=== PATIENT | female | born 1990 | race Caucasian/White ===

== ENCOUNTER 2021-09-04 10:27 | Inpatient (IN) | payer BC, SELFPAY ==
[~2021-09-04] VITALS: Ht 177.8 cm; Wt 79.4 kg
[2021-09-04 10:39] VITALS: BP_SYST 114
--- NOTE | 2021-09-04 10:45 | NUR ---
SENT TO ANG
--- NOTE | 2021-09-04 11:25 | NUR ---
DR. MAY EXAMINING PT
[2021-09-04] MEDS ORDERED: ONDANSETRON HCL 4 MG/2 ML VIAL IVP ONE (11:30)
[2021-09-04] MEDS ORDERED: DIPHENHYDRAMINE INJ 50 MG/ML VIAL IVP ONE ×2 (11:30→17:30)
[2021-09-04] MEDS ORDERED: LORazepam 2 MG/ML VIAL IVP ONE (11:30)
[2021-09-04] MEDS ORDERED: NACL 0.9% 2,000 ML IV ONE (11:30)
[2021-09-04] MEDS ORDERED: MAG HYDROX/AL HYDROX/SIMETH 30 ML, LIDOCAINE VISCOUS 2% 15ML (PO) 15 ML, DICYCLOMINE HC... PO ONE ×3 (11:45)
[2021-09-04 12:12] LABS: BASOPHILS % (AUTO) 0.1 % (0.0-2.0); HEMATOCRIT 39.6 % (36-48); HEMOGLOBIN 14.2 g/dL (12.0-16.0); LYMPHOCYTES # (AUTO) 0.6 K/uL (1.0-5.5); MEAN CORPUSCULAR HEMOGLOBIN 31 pg (27-31); MEAN CORPUSCULAR HGB CONC 36 % (32-36); MEAN CORPUSCULAR VOLUME 85 fL (79.0-98.0); MONOCYTES # (AUTO) 0.5 K/uL (0.0-1.0); MONOCYTES % (AUTO) 4.3 % (1.7-9.3); NEUTROPHILS % (AUTO) 90.6 % (40.0-70.0); PLATELET COUNT (AUTO) 410 K/uL (130-430); RED BLOOD CELL COUNT(AUTO) 4.64 MIL/uL (4.2-6.2); RED CELL DISTRIBUTION WIDTH 12.5 % (9.0-15.0); WHITE BLOOD COUNT (AUTO) 12.2 K/uL (4.8-10.8)
[2021-09-04 12:16] LABS: CALCIUM 9.4 mg/dL (8.4-11.0); CREATININE 0.89 mg/dL (0.55-1.30); POTASSIUM 4.1 mmol/L (3.5-5.1)
[2021-09-04 12:32] LABS: ALBUMIN 4.4 g/dL (3.4-4.8); TOTAL BILIRUBIN 1.5 mg/dL (0.0-1.0)
--- NOTE | 2021-09-04 12:51 | NUR ---
PT CONT TO BE IN XRAY, UNABLE TO MEDICATE. CN AND DR MAY AWARE
--- NOTE | 2021-09-04 13:05 | NUR ---
PT COMES TO ER WITH C/O EPIGATRIC PAIN WITH N/ V X 20 TIMES SINCE LAST NGIHT AFTER EATING OUTSIDE FOOD, STATES MOM WAS NAUTIOUS TOO, BUT IT STOPPED. DENIES ANY RESPIRATORY SYMPTOMS. SKIN W/D/I, REPORTS EPIGASTRIC PAIN, INTERMITTENT. DENIES DYSURIA/HEMATURIA. IV SL PLACED, MEDICATED, URINE COLLCTED AND SENT TO LAB. FAMILY AT BEDSIDE.
[2021-09-04 14:05] LABS: BILIRUBIN,URINE NEGATIVE (NEGATIVE); BLOOD, URINE NEGATIVE (NEGATIVE); CLARITY/URINE CLEAR (CLEAR); GLUCOSE,URINE NEGATIVE (NEGATIVE); KETONES,URINE 1+ (NEGATIVE); LEUKOCYTE ESTERASE ,URINE NEGATIVE (NEGATIVE); NITRITE, URINE NEGATIVE (NEGATIVE); PH,URINE 8.5 (5.0-8.0); PROTEIN URINE 1+ (NEGATIVE); UROBILINOGEN,URINE 0.2 (0.2-1.0)
[2021-09-04 14:11] LABS: COLOR,URINE AMBER (YELLOW)
[2021-09-04 14:15] LABS: BACTERIA,URINE None Seen /HPF (None Seen); MUCUS,URINE 1+ /LPF (None Seen); RBC,URINE 0-3 /HPF (0-3); WBC,URINE NONE SEEN /HPF (0-3)
[2021-09-04] MEDS ORDERED: KETOROLAC TROMETHAMINE 30 MG VIAL IVP ONE (14:15)
--- NOTE | 2021-09-04 14:26 | NUR ---
PT CONTNIUES TO REPORTS EPIGATSRIC PAIN, MEDICATED WITH TORADOL IVP ORDERED. IV FLUIDS INFUSING WELL.
[2021-09-04 14:42] LABS: PROTHROMBIN TIME 10.9 SECS (9.5-12.5)
--- NOTE | 2021-09-04 14:53 | NUR ---
AMBULAYTED TO [facility]
--- NOTE | 2021-09-04 14:57 | NUR ---
REPORT GIVEN TO MAGGI DOZIER, CARE TURNED OVER.
--- NOTE | 2021-09-04 15:00 | NUR ---
RECEIVED PT IN [facility] AOX[facility]. C/O NAUSEA, IV FLUIDS INFUSING PER ORDER. NAD. SAFETY MAINTAINED
--- NOTE | 2021-09-04 17:00 | NUR ---
PT DID NOT TOLERATE PO CHALLENGE. PT TO BE ADMITTED TO HOSPITAL.
[2021-09-04] MEDS ORDERED: METOCLOPRAMIDE HCL 10 MG/2 ML VIAL IVP ONE (17:30)
[2021-09-04] MEDS ORDERED: ONDANSETRON HCL 4 MG/2 ML VIAL IVP PRN (17:45)
[2021-09-04] MEDS ORDERED: KCL 20 mEq in D5/0.45NS 1000mL 1,000 ML IV ONE (17:45)
--- NOTE | 2021-09-04 18:09 | NUR ---
PT MEDICATED PER ORDER. TOLERATED WELL. NAD
[2021-09-04 20:00] VITALS: BP_SYST 127
[2021-09-04] MEDS ORDERED: KCL 20 mEq in D5/0.45NS 1000mL 1,000 ML IV SCH (20:30)
--- NOTE | 2021-09-04 22:00 | NUR ---
CONSULTATION PAGED REASON FOR CONSULTATION:ACUTE HEPATITIS WAS CONSULT CALED?Y PERSON WHO WAS NOTIFIED:HEDY CONSULTING PHYSICIAN:CORNELL GRIJALVA CUT IN STATION OPERATOR SPECIALTY:GI CUT IN STATION OPERATOR PHONE NUMBER:[phone] REQUESTING PHYSICIAN:BUBBA JIMENEZ
[2021-09-04] MEDS: DIPHENHYDRAMINE INJ 50 MG/ML VIAL IVP PRN (23:54)
[2021-09-04] MEDS: PANTOPRAZOLE SODIUM 40 MG/VIAL (PROTONIX) IVP SCH (23:55)
[2021-09-05] VITALS (7 sets, daily range): BP systolic 118–136
[2021-09-05] MEDS ORDERED: KETOROLAC TROMETHAMINE 15 MG VIAL IVP PRN (06:15)
[2021-09-05 07:40] LABS: BASOPHILS % (AUTO) 0.3 % (0.0-2.0); EOSINOPHILS # (AUTO) 0.1 K/uL (0.0-0.4); EOSINOPHILS % (AUTO) 0.5 % (0.0-4.0); HEMOGLOBIN 11.9 g/dL (12.0-16.0); LYMPHOCYTES # (AUTO) 2.4 K/uL (1.0-5.5); LYMPHOCYTES % (AUTO) 23.6 % (20.5-51.5); MEAN CORPUSCULAR HEMOGLOBIN 31 pg (27-31); MEAN CORPUSCULAR HGB CONC 35 % (32-36); MEAN CORPUSCULAR VOLUME 87 fL (79.0-98.0); MONOCYTES # (AUTO) 0.5 K/uL (0.0-1.0); MONOCYTES % (AUTO) 4.8 % (1.7-9.3); NEUTROPHILS # (AUTO) 7.3 K/uL (1.8-7.7); NEUTROPHILS % (AUTO) 70.8 % (40.0-70.0); PLATELET COUNT (AUTO) 315 K/uL (130-430); RED BLOOD CELL COUNT(AUTO) 3.91 MIL/uL (4.2-6.2); RED CELL DISTRIBUTION WIDTH 12.5 % (9.0-15.0); WHITE BLOOD COUNT (AUTO) 10.3 K/uL (4.8-10.8)
[2021-09-05 08:22] LABS: ALBUMIN 3.3 g/dL (3.4-4.8); CALCIUM 8.1 mg/dL (8.4-11.0); CREATININE 0.74 mg/dL (0.55-1.30); POTASSIUM 3.4 mmol/L (3.5-5.1); TOTAL BILIRUBIN 0.6 mg/dL (0.0-1.0)
[2021-09-05] MEDS ORDERED: DIATR MEGLU/DIATRIZ SOD 30 ML SOLUTION PO ONE (08:44)
[2021-09-05] MEDS ORDERED: NALOXONE HCL 0.4 MG/ML AMP (NARCAN) IVP PRN (09:00)
[2021-09-05] MEDS: PANTOPRAZOLE SODIUM 40 MG/VIAL (PROTONIX) IVP SCH ×2 (09:44→20:41)
--- NOTE | 2021-09-05 09:44 | NUR ---
Assumed care last night. We mainly managed pt immediate needs,and she was to be admitted by the Am RN. Pharmacy was away at the time. This AM pt was in pain, but no pain medications prescribed. MD was contacted. Received new orders. Pt was treated for pain. She is feeling much better. Care has been endorsed to AM RN.
[2021-09-05] MEDS: KCL 20 mEq in D5/0.45NS 1000mL 1,000 ML IV SCH ×2 (09:51→16:45)
[2021-09-05 10:30] LABS: LACTATE DEHYDROGENASE 318 U/L (81-234)
[2021-09-05 10:37] LABS: ACETAMINOPHEN < 1 ug/mL (1-30)
[2021-09-05 10:46] LABS: TOTAL IRON BIND. CAPACITY 328 ug/dL (250-450)
[2021-09-05] MEDS: MORPHINE 2 MG/ML INJ. SYRINGE IVP PRN ×2 (14:44→20:54)
--- NOTE | 2021-09-05 19:30 | NUR ---
Opening note Received report from day shift. Pt is awake lying in bed with mother at bedside. No s/s of respiratory distress. Breathing even and unlabored. IV site is intact and patent with fluids running at ordered rate. Fall and safety precautions in place with bed in lowest position and call light within reach
[2021-09-05] MEDS: ONDANSETRON HCL 4 MG/2 ML VIAL IVP PRN (20:42)
[2021-09-05 23:41] LABS: BARBITURATE, URINE NEGATIVE (NEG <=200); BENZODIAZEPINE, URINE POSITIVE (NEG <=150); CANNABINOID, URINE POSITIVE (NEG <=50); COCAINE, URINE NEGATIVE (NEG <=150); METHAMPHETAMINES SCREEN,URINE NEGATIVE (NEG <=500); OPIATE, URINE POSITIVE (NEG <=100); PHENCYCLIDINE SCREEN,URINE NEGATIVE (NEG <=25); UR TRICYCLIC ANTIDEPRESSANTS NEGATIVE (NEG <=300); URINE AMPHETAMINE NEGATIVE (NEG <=500); URINE METHADONE NEGATIVE (NEG <=200); URINE OXYCODONE SCREEN NEGATIVE (NEG <=100); URINE PROPOXYPHENE SCREEN NEGATIVE (NEG <=300)
[2021-09-06] VITALS: BP_SYST 111
--- NOTE | 2021-09-06 00:15 | NUR ---
Rounds Pt sleeping. Mother still at bedside. No s/s of acute distress. Fall and safety checks in place
[2021-09-06] MEDS: KCL 20 mEq in D5/0.45NS 1000mL 1,000 ML IV SCH ×2 (01:39→11:31)
--- NOTE | 2021-09-06 02:01 | NUR ---
Pt had episodes of vomiting, administered zofran and benadryl PRN per pt request
[2021-09-06] MEDS: DIPHENHYDRAMINE INJ 50 MG/ML VIAL IVP PRN ×2 (02:57→11:31)
[2021-09-06] MEDS: ONDANSETRON HCL 4 MG/2 ML VIAL IVP PRN ×2 (02:57→11:31)
--- NOTE | 2021-09-06 06:59 | NUR ---
Closing note Pt sleeping. No s/s of respiratory distress. Breathing even and unlabored. IV site is intact and patent with fluids running at ordered rate. Pt no longer vomiting. All needs met throughout shift. Fall and safety precautions in place with bed in lowest position and call light within reach.
[2021-09-06 07:23] LABS: BASOPHILS % (AUTO) 0.5 % (0.0-2.0); EOSINOPHILS % (AUTO) 0.1 % (0.0-4.0); HEMATOCRIT 39.4 % (36-48); HEMOGLOBIN 13.7 g/dL (12.0-16.0); LYMPHOCYTES # (AUTO) 1.7 K/uL (1.0-5.5); LYMPHOCYTES % (AUTO) 18.9 % (20.5-51.5); MEAN CORPUSCULAR HEMOGLOBIN 31 pg (27-31); MEAN CORPUSCULAR HGB CONC 35 % (32-36); MEAN CORPUSCULAR VOLUME 88 fL (79.0-98.0); MONOCYTES # (AUTO) 0.4 K/uL (0.0-1.0); NEUTROPHILS # (AUTO) 6.9 K/uL (1.8-7.7); NEUTROPHILS % (AUTO) 76.5 % (40.0-70.0); PLATELET COUNT (AUTO) 368 K/uL (130-430); RED BLOOD CELL COUNT(AUTO) 4.48 MIL/uL (4.2-6.2); RED CELL DISTRIBUTION WIDTH 12.7 % (9.0-15.0)
[2021-09-06 07:43] LABS: INR 0.9 (0.8-1.2); PROTHROMBIN TIME 9.9 SECS (9.5-12.5)
[2021-09-06 07:45] LABS: ALBUMIN 4.1 g/dL (3.4-4.8); CALCIUM 9.1 mg/dL (8.4-11.0); CREATININE 0.83 mg/dL (0.55-1.30); POTASSIUM 3.3 mmol/L (3.5-5.1); TOTAL BILIRUBIN 0.4 mg/dL (0.0-1.0)
[2021-09-06 08:00] VITALS: BP_SYST 95
[2021-09-06 08:06] LABS: HEPATITIS A AB, IgM Negative (Negative); HEPATITIS B CORE AB, IgM Negative (Negative); HEPATITIS B SURFACE AG Negative (Negative)
[2021-09-06] MEDS: PANTOPRAZOLE SODIUM 40 MG/VIAL (PROTONIX) IVP SCH (11:21)
[2021-09-06 12:00] VITALS: BP_SYST 113
[2021-09-06 16:00] VITALS: BP_SYST 139
[2021-09-06 18:18] VITALS: BP_SYST 139
[2021-09-07 08:06] LABS: HEPATITIS A AB, IgM Negative (Negative); HEPATITIS B CORE AB, IgM Negative (Negative); HEPATITIS B SURFACE AG Negative (Negative)
== END 2021-09-06 18:30 | disposition home or self-care (01) | DRG 442 ==
LOC: SED 10:27 → SMU 17:32
PROVIDERS: ADMIT Family Medicine; ATTEND Family Medicine
DX: B17.9 Acute viral hepatitis, unspecified (principal); Q79.60 Ehlers-Danlos syndrome, unspecified; K80.80 Other cholelithiasis without obstruction; Z20.822 Contact with and (suspected) exposure to COVID-19
CPT/HCPCS: 36415; 70450-TC; 76376; 76705; 80053; 80074; 80307; 81000; 82103; 82150; 82390; 82550; 82977; 83516; 83540; 83550; 83605; 83615; 83690; 83735; 84702; 84703; 85025; 85610-TC; 85651-TC; 85730-TC; 86038; 86705; 86709; 87340; 96374; 96375; 96376; 99285; C9113; G0480; G0481; J1200; J1885; J2001; J2060; J2270; J2405; J2765; Q9964; Q9967